=== PATIENT | male | born 1955 | race African-American/Black ===

== ENCOUNTER → 2019-01-31 | Outpatient (CLI) | payer OTHER ==
--- NOTE | 2019-01-31 19:01 | CONS ---
CONSULTATION DATE OF SERVICE: 01/31/2019 This patient is a 63-year-old gentleman who has been evaluated in the sleep center for possible obstructive sleep apnea-hypopnea syndrome. HISTORY OF PRESENT ILLNESS/SLEEP-WAKE EVALUATION: Patient's usual sleep schedule is from around 10 p.m. until 6 or 7 a.m. Usually no problems with falling asleep, although patient has TV set in bedroom. He wakes up from sleep up to 4 times, with up to 3 episodes of nocturia. He has loud snoring, kicks at night, wakes up with grinding teeth, heartburn, restless legs and sweating. In the morning the patient wakes up tired, falling asleep during the day. He worries about his sleep, has problems with memory, concentration, irritability and sexual dysfunction. [place] Sleepiness Scale is increased at 22. No history of hypnagogic hallucinations, sleep paralysis or cataplexy. PAST MEDICAL HISTORY: 1. Hypertension. 2. Asthma. 3. Hyperlipidemia. 4. Hypothyroidism. PAST SURGICAL HISTORY: Right knee arthroscopic surgery. MEDICATIONS: 1. Thyroid supplement. 2. Atorvastatin. 3. Amlodipine. 4. Symbicort. 5. ProAir. SOCIAL HISTORY: Negative for smoking. Alcohol consumption occasional. FAMILY HISTORY: Hypertension, arthritis, snoring, cancer. REVIEW OF SYSTEMS: Multiple awakenings from sleep, significant excessive daytime sleepiness and tiredness. PHYSICAL EXAMINATION: GENERAL: A pleasant -English gentleman without distress. VITAL SIGNS: BP 161/73, HR 92, RR 16, height 5 feet 11-1/2 inches, weight 279 pounds, body mass index 38.3, temperature 98.1, oxygen saturation at room air 98%. HEENT: PERRLA, EOMI. Evaluation of oropharynx showed tongue protrudes midline. Extremely low position of soft palate. Mallampati IV. Restriction of nasal breathing bilaterally. NECK: Supple. No JVD. Thyroid is not palpable. Wide neck: 17-1/2 inches in circumference. LUNGS: Clear to percussion and to auscultation. Good air exchange. No wheezing or rhonchi. HEART: S1, S2 regular. No murmurs, gallops or rubs. ABDOMEN: Obese. EXTREMITIES: No clubbing or cyanosis. [employer]: Awake, alert, and oriented X3. Cranial nerves 2 to 7 intact. There is no fasciculation or atrophy. noted. No focal deficits observed. IMPRESSION: 1. Snoring, multiple awakenings from sleep, extremely low position of soft palate, wide neck, sleepiness; obstructive sleep apnea-hypopnea syndrome. 2. Significant excessive daytime sleepiness with very high level of [place] Sleepiness Scale at 22, indicating necessity to include hypersomnia and narcolepsy in the differential diagnosis. 3. Kicking at night, periodic limb movements. 4. Hypertension. 5. Asthma. 6. Hyperlipidemia. 7. Hypothyroidism. 8. Status post right knee arthroscopic surgery. PLAN: 1. Polysomnography for evaluation of patient's breathing during sleep. 2. CPAP/BiPAP titration if sleep study confirms obstructive sleep apnea-hypopnea syndrome. 3. Preferable position during sleep on the side. 4. No driving if patient feels any sleepiness. 5. I will see patient for follow up visit to explain results of testing and following plan. After sleep apnea is treated, if necessary periodic limb movements will be treated. We will do a clinical assessment for symptoms of excessive daytime sleepiness. If patient continues to have any sleepiness, we may consider multiple sleep latency test. Thank you very much for referring this patient for consultation. Sincerely, Senthil Kapoor MD, PhD, FAASM Diplomat of [employer] [facility] Aldie MMODL / ROXANNN: [phone] /
== END | disposition home or self-care (01) ==
LOC: SLEEP 14:15
PROVIDERS: ATTEND Internal Medicine
DX: G47.33 Obstructive sleep apnea (adult) (pediatric) (principal); G47.61 Periodic limb movement disorder; I10 Essential (primary) hypertension; J45.909 Unspecified asthma, uncomplicated; E78.5 Hyperlipidemia, unspecified; E03.9 Hypothyroidism, unspecified; Z98.890 Other specified postprocedural states; Z79.51 Long term (current) use of inhaled steroids; Z79.899 Other long term (current) drug therapy
CPT/HCPCS: 99211

== ENCOUNTER 2021-09-12 22:10 | Observation (INO) | payer MEDICARE, OTHER ==
[2021-09-12] MEDS ORDERED: DEXAMETHASONE SOD PHOSPHATE 10 MG/ML 1 ML VIAL IVP STA (22:19)
[2021-09-12] MEDS ORDERED: ACETAMINOPHEN TAB 500 MG TAB PO STA (22:19)
[2021-09-12] MEDS ORDERED: KETOROLAC 15 MG/ML 1 ML VIAL IVP STA (22:19)
[2021-09-12] MEDS ORDERED: SODIUM CHLORIDE 0.9% 1,000 ML IV STA ×2 (22:19)
[2021-09-12] MEDS ORDERED: ALBUTEROL HFA INHALER INHALATION STA (22:19)
--- NOTE | 2021-09-12 22:26 | ED ---
Recheck HPI - General Chief Complaint: Shortness of Breath Stated Complaint: SOB Time Seen by Provider: 09/12/21 22:19 Source: patient, RN notes reviewed, old records reviewed Mode of arrival: wheelchair Limitations: no limitations - History of Present Illness Initial Comments: This is a 66-year-old male DF for evaluation. Patient presents with a positive coronavirus patient known as far as 1210. Patient did receive antibody treatment and states his felt better today he did not and then began to have persistent feelings of weakness, shortness of breath. Patient has no significant complaints of chest pain. Patient states he will start coughing fits and then becomes very anxious regarding his symptoms which is why he presents to the ER tonight. Patient admits to pressure and shortness of breath as well. MD Complaint: abnormal lab (Known positive history of coronavirus) -: days(s) (10) Returns Today for: Called Because of Abnormal Lab/Test, persistent/worsening pain related to initial visit Symptoms Since Prior Visit: worsening pain Associated Symptoms: fever, chills, malaise, nausea Treatments Prior to Arrival: other medications (none) - Related Data Home Medications Medication Instructions Recorded Confirmed Albuterol Nebulized [Ventolin 2.5 mg INHALATION RT-QID PRN 01/12/16 09/12/21 Nebulized] Symbicort (Unknown Dose) 2 puff INHALATION RT-BID 01/12/16 09/12/21 Levothyroxine Sodium [Synthroid] 75 mcg PO DAILY 01/14/16 09/12/21 Albuterol Sulfate [Proair Hfa] 2 puff INHALATION RT-Q4H PRN 09/12/21 09/12/21 Ascorbic Acid [Vitamin C] 1,000 mg PO DAILY 09/12/21 09/12/21 Aspirin EC [Ecotrin Low Dose] 81 mg PO DAILY 09/12/21 09/12/21 Atorvastatin Calcium [Lipitor] 40 mg PO DAILY 09/12/21 09/12/21 Brinzolamide [Azopt 1% Ophth Susp] 1 drop BOTH EYES BID 09/12/21 09/12/21 Cyanocobalamin (Vitamin B-12) 1,000 mcg PO DAILY 09/12/21 09/12/21 [Vitamin B-12] Latanoprost/Pf [Latanoprost 0.005% 1 drop BOTH EYES HS 09/12/21 09/12/21 Eye Drop] amLODIPine [Norvasc] 10 mg PO DAILY 09/12/21 09/12/21 Allergies Allergy/AdvReac Type Severity Reaction Status Date / Time No Known Allergies Allergy Verified 09/12/21 23:20 Review of Systems ROS Statement: Those systems with pertinent positive or pertinent negative responses have been documented in the HPI. ROS Other: All systems not noted in ROS Statement are negative. Past Medical History Past Medical History: Asthma, Diabetes Mellitus, Hypertension History of Any Multi-Drug Resistant Organisms: None Reported Past Surgical History: Orthopedic Surgery Additional Past Surgical History / Comment(s): LOREN KNEE ARTHROSCOPY, COLONOSCOPY Past Anesthesia/Blood Transfusion Reactions: No Reported Reaction Past Psychological History: No Psychological Hx Reported Smoking Status: Never smoker Past Alcohol Use History: Rare Past Drug Use History: None Reported - Past Family History Father Family Medical History: Cancer Additional Family Medical History / Comment(s): BONE General Exam General appearance: alert, in no apparent distress, lethargic, obese Head exam: Present: atraumatic, normocephalic, normal inspection Eye exam: Present: normal appearance, PERRL, EOMI. Absent: scleral icterus, conjunctival injection, periorbital swelling ENT exam: Present: normal exam, mucous membranes moist Neck exam: Present: normal inspection. Absent: tenderness, meningismus, lymphadenopathy Respiratory exam: Present: respiratory distress, wheezes, decreased breath sounds, prolonged expiratory. Absent: rales, rhonchi, stridor Cardiovascular Exam: Present: regular rate, normal rhythm, normal heart sounds. Absent: systolic murmur, diastolic murmur, rubs, gallop, clicks GI/Abdominal exam: Present: soft, normal bowel sounds. Absent: distended, tenderness, guarding, rebound, rigid Extremities exam: Present: normal inspection, full ROM, normal capillary refill. Absent: tenderness, pedal edema, joint swelling, calf tenderness Back exam: Present: normal inspection Neurological exam: Present: alert, oriented X3, CN II-XII intact Psychiatric exam: Present: normal affect, normal mood Skin exam: Present: warm, dry, intact, normal color. Absent: rash Course Vital Signs 09/12/21 22:12 Temperature 98.0 F Pulse Rate 99 Respiratory 18 Rate Blood Pressure 151/86 O2 Sat by Pulse 97 Oximetry - Reevaluation(s) Reevaluation #1: 12/19/21 00:52 Medical record is reviewed Reevaluation #2: 09/13/21 00:52 Patient having persistent and significant shortness of breath weakness and not feeling well Reevaluation #3: 09/13/21 00:52 Patient states that 90 is very short of breath can catch his breath and has coughing fits Reevaluation #4: 09/13/21 00:52 Patient informed results and questions answered Does not fill comfortable with discharge - Consultations Consultation #1: Spoke with Dr. Prince who will admit this patient Medical Decision Making - Medical Decision Making 56 male presented today for evaluation of shortness of breath persistent coronavirus weakness with asthma exacerbation. Patient will be admitted for breathing treatments as needed steroids and monitoring. - Lab Data Result diagrams: 09/12/21 23:05 09/12/21 23:05 Lab Results 09/12/21 09/12/21 09/12/21 Range/Units 23:05 23:05 23:05 WBC 6.0 (3.8-10.6) k/uL RBC 5.07 (4.30-5.90) m/uL Hgb 14.0 (13.0-17.5) gm/dL Hct 43.7 (39.0-53.0) % MCV 86.1 (80.0-100.0) fL MCH 27.7 (25.0-35.0) pg MCHC 32.1 (31.0-37.0) g/dL RDW 14.0 (11.5-15.5) % Plt Count 272 (150-450) k/uL MPV 8.2 Neutrophils % 71 % Lymphocytes % 21 % Monocytes % 6 % Eosinophils % 1 % Basophils % 1 % Neutrophils # 4.2 (1.3-7.7) k/uL Lymphocytes # 1.3 (1.0-4.8) k/uL Monocytes # 0.4 (0-1.0) k/uL Eosinophils # 0.0 (0-0.7) k/uL Basophils # 0.0 (0-0.2) k/uL PT 9.6 (9.0-12.0) sec INR 0.9 (<1.2) APTT 23.8 (22.0-30.0) sec Sodium 137 (137-145) mmol/L Potassium 4.0 (3.5-5.1) mmol/L Chloride 99 (98-107) mmol/L Carbon Dioxide 25 (22-30) mmol/L Anion Gap 13 mmol/L BUN 11 (9-20) mg/dL Creatinine 1.06 (0.66-1.25) mg/dL Est GFR (CKD-EPI)AfAm 85 (>60 ml/min/1.73 sqM) Est GFR (CKD-EPI)NonAf 74 (>60 ml/min/1.73 sqM) Glucose 126 H (74-99) mg/dL Plasma Lactic Acid Kevin (0.7-2.0) mmol/L Calcium 8.8 (8.4-10.2) mg/dL Magnesium 2.1 (1.6-2.3) mg/dL Total Bilirubin 0.5 (0.2-1.3) mg/dL AST 33 (17-59) U/L ALT 25 (4-49) U/L Alkaline Phosphatase 78 (38-126) U/L Lactate Dehydrogenase 662 H (313-618) U/L C-Reactive Protein 3.8 H (<1.0) mg/dL Total Protein 6.9 (6.3-8.2) g/dL Albumin 4.1 (3.5-5.0) g/dL 09/12/21 Range/Units 23:05 WBC (3.8-10.6) k/uL RBC (4.30-5.90) m/uL Hgb (13.0-17.5) gm/dL Hct (39.0-53.0) % MCV (80.0-100.0) fL MCH (25.0-35.0) pg MCHC (31.0-37.0) g/dL RDW (11.5-15.5) % Plt Count (150-450) k/uL MPV Neutrophils % % Lymphocytes % % Monocytes % % Eosinophils % % Basophils % % Neutrophils # (1.3-7.7) k/uL Lymphocytes # (1.0-4.8) k/uL Monocytes # (0-1.0) k/uL Eosinophils # (0-0.7) k/uL Basophils # (0-0.2) k/uL PT (9.0-12.0) sec INR (<1.2) APTT (22.0-30.0) sec Sodium (137-145) mmol/L Potassium (3.5-5.1) mmol/L Chloride (98-107) mmol/L Carbon Dioxide (22-30) mmol/L Anion Gap mmol/L BUN (9-20) mg/dL Creatinine (0.66-1.25) mg/dL Est GFR (CKD-EPI)AfAm (>60 ml/min/1.73 sqM) Est GFR (CKD-EPI)NonAf (>60 ml/min/1.73 sqM) Glucose (74-99) mg/dL Plasma Lactic Acid Kevin 1.4 (0.7-2.0) mmol/L Calcium (8.4-10.2) mg/dL Magnesium (1.6-2.3) mg/dL Total Bilirubin (0.2-1.3) mg/dL AST (17-59) U/L ALT (4-49) U/L Alkaline Phosphatase (38-126) U/L Lactate Dehydrogenase (313-618) U/L C-Reactive Protein (<1.0) mg/dL Total Protein (6.3-8.2) g/dL Albumin (3.5-5.0) g/dL - EKG Data -: EKG Interpreted by Me (EKG shows normal sinus a 93 SD 130 QRS 74 QTc 455) - Radiology Data Radiology results: report reviewed (Chest x-rays positive for coronavirus pneumonia), image reviewed Disposition Clinical Impression: Acute exacerbation of chronic obstructive pulmonary disease, Coronavirus infection, Pneumonia due to 2019 novel coronavirus Disposition: ADMITTED IP TO THIS HOSP Condition: Good Is patient prescribed a controlled substance at d/c from ED?: No Referrals: [facility],Clinic [REFERRING] - 1-2 days
--- NOTE | 2021-09-12 23:11 | XR ---
EXAMINATION TYPE: XR chest 1V portable DATE OF EXAM: 09/12/2021 COMPARISON: NONE HISTORY: Short of breath. Cough TECHNIQUE: Single view FINDINGS: There is some coarse peripheral interstitial infiltrates in the lungs. There is some degene rative spurring in the thoracic spine. There is no gross heart failure. Costophrenic angles are fairl y clear. IMPRESSION: There is some mild peripheral pulmonary interstitial infiltrates. No suspicious pulmonary mass. No heart failure.
[2021-09-13 00:10] LABS: Basophils % (A) 1 %; Eosinophils % (A) 1 %; HCT 43.7 % (39.0-53.0); Lymphocytes # (A) 1.3 k/uL (1.0-4.8); Lymphocytes % (A) 21 %; MCH 27.7 pg (25.0-35.0); MCHC 32.1 g/dL (31.0-37.0); MCV 86.1 fL (80.0-100.0); Mean Platelet Volume 8.2; Monocytes # (A) 0.4 k/uL (0-1.0); Monocytes % (A) 6 %; Neutrophils # (A) 4.2 k/uL (1.3-7.7); Neutrophils % (A) 71 %; Platelet Count 272 k/uL (150-450); RBC 5.07 m/uL (4.30-5.90)
[2021-09-13 00:19] LABS: INR 0.9 (<1.2); Partial Thromboplastin Time 23.8 sec (22.0-30.0); Prothrombin Time 9.6 sec (9.0-12.0)
[2021-09-13 00:24] LABS: Albumin 4.1 g/dL (3.5-5.0); C Reactive Protein 3.8 mg/dL (<1.0); Calcium 8.8 mg/dL (8.4-10.2); Magnesium 2.1 mg/dL (1.6-2.3); Total Bilirubin 0.5 mg/dL (0.2-1.3); Total Protein 6.9 g/dL (6.3-8.2)
[2021-09-13] MEDS ORDERED: MORPHINE SULFATE 4 MG/ML SYRINGE IV PRN (00:45)
[2021-09-13] MEDS ORDERED: ACETAMINOPHEN TAB 325 MG TAB PO PRN (00:45)
[2021-09-13] MEDS ORDERED: ONDANSETRON 4 MG/2 ML VIAL IVP PRN (00:45)
[2021-09-13] MEDS ORDERED: NALOXONE 0.4 MG/ML 1 ML VIAL IV PRN (00:45)
[2021-09-13] MEDS ORDERED: LORazepam 2 MG/ML INJ IV PRN (00:45)
[2021-09-13] MEDS ORDERED: IBUPROFEN 400 MG TAB PO PRN (00:45)
[2021-09-13] MEDS: SODIUM CHLORIDE 0.9% 1,000 ML IV SCH ×3 (06:54→13:02)
[2021-09-13] MEDS: DEXAMETHASONE SOD PHOSPHATE 4 MG/ML 1 ML VIAL IVP SCH ×2 (06:55→13:02)
[2021-09-13] MEDS: ENOXAPARIN 40 MG/0.4 ML SYRINGE SQ SCH (07:53)
[2021-09-13] MEDS ORDERED: ALBUTEROL HFA INHALER INHALATION PRN (12:20)
[2021-09-13] MEDS: DORZOLAMIDE HCL 2% DROPS 10 ML BTL BOTH EYES SCH ×2 (13:01→20:57)
[2021-09-13] MEDS: amLODIPine 10 MG TAB PO SCH (13:02)
[2021-09-13] MEDS: CYANOCOBALAMIN 500 MCG TAB PO SCH (13:02)
[2021-09-13] MEDS: ASCORBIC ACID 500 MG TAB PO SCH (13:02)
[2021-09-13] MEDS: ATORVASTATIN 40 MG TAB PO SCH (13:02)
[2021-09-13] MEDS: LEVOTHYROXINE 75 MCG TAB PO SCH (13:02)
[2021-09-13] MEDS: ASPIRIN 81 MG PO SCH (13:02)
--- NOTE | 2021-09-13 16:46 | P.CNPUL ---
History of Present Illness Consult date: 09/13/21 Requesting physician: Peyton Stafford Reason for consult: dyspnea, cough, asthma, pneumonia, abnormal CXR/CT Chief complaint: Shortness of breath and cough. History of present illness: Pulmonary consult dated 09/13/2021. 66-year-old male, who was seen in the emergency department, on September 12, for shortness of breath. The patient tested positive for coronavirus on September 04. At that time, the patient received monoclonal antibody infusion. He comes into the emergency room complaining of weakness, shortness of breath, cough, and just generally not feeling well. The patient is evaluated in the emergency room, and admitted to the hospital. Currently, the patient's on room air with saturations are 95%. Blood pressure 147/81, respiratory rate 18, heart rate 84, and a normal temperature. Chest x-ray show some minimal bilateral infiltrates. White count 6, hemoglobin 14, hematocrit 43.7, and platelet count 272,000. Sodium potassium chloride CO2 all normal. Anion gap normal. BUN and creatinine were 11 1.06. Ferritin was 733. LDH 662. C-reactive protein was 3.8. The patient is currently on vitamin C, Symbicort, Decadron, and Lovenox. Review of Systems REVIEW OF SYSTEMS: CONSTITUTIONAL: Weakness and fatigue. NEUROLOGIC: [ Negative.] HEENT: [ Negative.] CARDIAC: [Negative.] PULMONARY: Shortness of breath, chest congestion, cough. GI: [Negative.] : [Negative.] RHEUMATOLOGIC: [ Negative.] IMMUNOLOGIC: [ Negative.] ENDOCRINE: [Negative. ] DERMATOLOGIC: [Negative.] Past Medical History Past Medical History: Asthma, Diabetes Mellitus, Hypertension History of Any Multi-Drug Resistant Organisms: None Reported Past Surgical History: Orthopedic Surgery Additional Past Surgical History / Comment(s): LOREN KNEE ARTHROSCOPY, COLONOSCOPY Past Anesthesia/Blood Transfusion Reactions: No Reported Reaction Past Psychological History: No Psychological Hx Reported Smoking Status: Never smoker Past Alcohol Use History: Rare Past Drug Use History: None Reported - Past Family History Father Family Medical History: Cancer Additional Family Medical History / Comment(s): BONE Medications and Allergies Home Medications Medication Instructions Recorded Confirmed Type Albuterol Nebulized [Ventolin 2.5 mg INHALATION RT-QID PRN 01/12/16 09/12/21 History Nebulized] Symbicort (Unknown Dose) 2 puff INHALATION RT-BID 01/12/16 09/12/21 History Levothyroxine Sodium [Synthroid] 75 mcg PO DAILY 01/14/16 09/12/21 History Albuterol Sulfate [Proair Hfa] 2 puff INHALATION RT-Q4H PRN 09/12/21 09/12/21 History Ascorbic Acid [Vitamin C] 1,000 mg PO DAILY 09/12/21 09/12/21 History Aspirin EC [Ecotrin Low Dose] 81 mg PO DAILY 09/12/21 09/12/21 History Atorvastatin Calcium [Lipitor] 40 mg PO DAILY 09/12/21 09/12/21 History Brinzolamide [Azopt 1% Ophth Susp] 1 drop BOTH EYES BID 09/12/21 09/12/21 History Cyanocobalamin (Vitamin B-12) 1,000 mcg PO DAILY 09/12/21 09/12/21 History [Vitamin B-12] Latanoprost/Pf [Latanoprost 0.005% 1 drop BOTH EYES HS 09/12/21 09/12/21 History Eye Drop] amLODIPine [Norvasc] 10 mg PO DAILY 09/12/21 09/12/21 History Allergies Allergy/AdvReac Type Severity Reaction Status Date / Time No Known Allergies Allergy Verified 09/12/21 23:20 Physical Exam Osteopathic Statement: *. No significant issues noted on an osteopathic structural exam other than those noted in the History and Physical/Consult. Vitals: Vital Signs Temp Pulse Pulse Resp BP BP Pulse Ox 09/13/21 14:46 97.9 F 84 18 147/81 95 09/13/21 07:00 97.4 F L 85 18 132/80 95 09/13/21 06:19 98.1 F 84 18 134/72 99 09/13/21 02:00 85 18 135/78 99 09/12/21 22:12 98.0 F 99 18 151/86 97 Intake and Output 09/13/21 09/13/21 09/13/21 06:59 14:59 22:59 Intake Total 118 Balance 118 Intake: Oral 118 Other: # Voids 2 # Bowel Movements 1 Weight 128.82 kg No acute distress, oriented 3. No respiratory distress. The patient's on room air, with excellent saturations. HEENT examination is grossly unremarkable. Neck supple. Full range of motion. No adenopathy thyromegaly or neck vein distention. Cardiovascular examination reveals regular rhythm rate. S1-S2 normal. No S3 or S4. No discernible murmur noted. Heart rate 84 bpm. Lungs reveal mild scattered rhonchi. No wheezes. A few scattered crackles. Breath sounds equal. Room air saturation 95%. Abdomen soft bowel sounds are heard. No masses or tenderness. Extremities are intact. No cyanosis clubbing or edema. Skin is without rash or lesion. Neurologic examination is brief but nonfocal. Results - Laboratory Findings CBC and BMP: 09/12/21 23:05 09/12/21 23:05 PT/INR, D-dimer PT 9.6 sec (9.0-12.0) 09/12/21 23:05 INR 0.9 (<1.2) 09/12/21 23:05 Abnormal lab findings: Abnormal Labs 09/12/21 09/13/21 23:05 06:59 Glucose 126 H Ferritin 733.0 H Lactate Dehydrogenase 662 H C-Reactive Protein 3.8 H Coronavirus (PCR) Detected A - Diagnostic Findings Chest x-ray: image reviewed Assessment and Plan Assessment: Acute coronavirus infection, with minimal pulmonary complaints. History of chronic bronchial asthma. History of diabetes mellitus. History of hypertension. History of hypothyroidism. History of hyperlipidemia. Plan: Plan dated 09/13/2021. The patient appears to be relatively stable. His asthma appears not to be particularly active. His chest x-ray shows minimal bilateral infiltrates. The patient did receive a monoclonal antibody infusion. Medications are reviewed. Labs reviewed. Medications will be adjusted accordingly. We will continue to follow make recommendations where appropriate. Time with Patient: Greater than 30
--- NOTE | 2021-09-13 18:21 | HP ---
HISTORY AND PHYSICAL DATE OF SERVICE: 09/13/2021. CHIEF COMPLAINTS: Shortness of breath and weakness. HISTORY OF PRESENT ILLNESS: This 66-year-old gentleman with a past medical history of multiple medical problems, including history of asthma, diabetes mellitus, hypertension, being followed by Dr. Marybel Callaway in the outpatient setting, was recently diagnosed with COVID-19 on September 04. The patient subsequently monoclonal antibodies. For a period, the patient felt better. Now the patient is complaining of increasing shortness of breath and weakness. Patient was taken to [facility] and admitted for further evaluation and treatment. The pulse ox is normal. Chest x-ray showed some minimal pneumonia, and inflammatory markers are also elevated. COVID-19 is negative. D- dimer is not available. There is no history of any fever, rigor or chills at this time. No headache, loss of consciousness , seizures. PAST MEDICAL HISTORY: Asthma, diabetes mellitus, hypertension. HOME MEDICATIONS: Reviewed. They include vitamin B12, vitamin C, latanoprost, Ecotrin, Norvasc, Lipitor, ProAir. Doses are reviewed. ALLERGIES: NONE. FAMILY HISTORY: No history of heart disease or strokes in the family. SOCIAL HISTORY: No history of smoking. No history of alcohol intake. REVIEW OF SYSTEMS: ENT: No diminished hearing. No diminished vision. CARDIOVASCULAR SYSTEM: As mentioned earlier. RESPIRATORY SYSTEM: As mentioned earlier. GI: No nausea, vomiting, diarrhea. : No dysuria. NERVOUS SYSTEM: No numbness, weakness. ALLERGY/IMMUNOLOGY: As mentioned earlier. HEMATOLOGY/ONCOLOGY: No history of anemia. ENDOCRINE: As mentioned earlier. CONSTITUTIONAL: As mentioned earlier. DERMATOLOGY: Negative. RHEUMATOLOGY: Negative. PSYCHIATRY: As mentioned earlier. PHYSICAL EXAMINATION: Patient is alert, oriented x3. Pulse is 85, blood pressure 132/80, respiration 18, temperature 97.4, pulse ox 94% on room air. HEENT: Conjunctivae normal. NECK: No jugular venous distention. CARDIOVASCULAR: S1, S2 muffled. RESPIRATION: Breath sounds diminished at the bases. A few scattered rhonchi and crackles. ABDOMEN: Soft, nontender. LEGS: No edema. No swelling. NERVOUS SYSTEM: Higher functions as mentioned earlier. Moves all 4 limbs. No focal motor or sensory deficit. LYMPHATICS: No lymph node palpable in neck, axillae or groin. SKIN: No ulcer, rash, bleeding. JOINTS: No active deforming arthropathy. LABS: CBC within normal limits. Glucose 126. Ferritin 730. Other labs noted. ASSESSMENT: 1. Acute COVID-19 infection with acute COVID-19 bilateral early interstitial pneumonia with no hypoxia. 2. Elevated inflammatory markers of COVID-19. 3. Chronic intermittent bronchial asthma. 4. Diabetes mellitus, type 2. 5. Hypertension. 6. Degenerative joint disease. 7. FULL CODE. 8. Obesity with body mass index of 37.4. RECOMMENDATIONS AND DISCUSSION: In this 66-year-old gentleman who presented with multiple complex medical issues, we will monitor the patient closely, continue the current medications, continue with symptomatic treatment. The patient was started on dexamethasone. Monitor blood sugars closely. Repeat labs. Cautious IV fluids. I would also recommend a D-dimer; if it is elevated, CT angio of the chest. Prognosis is guarded because of multiple complex medical issues. Further recommendations to follow. A copy of this dictation is being forwarded to Dr. Marybel Callaway, who is the primary physician. RENEE / ROXANNN: [phone] / LEOBARDO
[2021-09-13] MEDS: SYMBICORT 160-4.5 MCG INHALER INHALATION SCH (19:58)
[2021-09-13] MEDS ORDERED: SYMBICORT 80-4.5 MCG INHALER INHALATION SCH (20:00)
[2021-09-13] MEDS ORDERED: LATANOPROST 0.005% OPHTH DROPS 2.5 ML BTL BOTH EYES SCH (21:00)
[2021-09-14] MEDS ORDERED: guaiFENesin SYRUP 100MG/5ML 200 MG/10 ML CUP PO PRN (02:37)
[2021-09-14] MEDS: SODIUM CHLORIDE 0.9% 1,000 ML IV SCH ×2 (02:42→16:17)
[2021-09-14] MEDS: LEVOTHYROXINE 75 MCG TAB PO SCH (05:40)
[2021-09-14 07:48] VITALS: RESP 18; TEMP 97.7
[2021-09-14] MEDS: ENOXAPARIN 40 MG/0.4 ML SYRINGE SQ SCH (07:59)
[2021-09-14] MEDS: amLODIPine 10 MG TAB PO SCH (08:00)
[2021-09-14] MEDS: ASCORBIC ACID 500 MG TAB PO SCH (08:00)
[2021-09-14] MEDS: ASPIRIN 81 MG PO SCH (08:00)
[2021-09-14] MEDS: ATORVASTATIN 40 MG TAB PO SCH (08:00)
[2021-09-14] MEDS: DORZOLAMIDE HCL 2% DROPS 10 ML BTL BOTH EYES SCH (08:00)
[2021-09-14] MEDS: CYANOCOBALAMIN 500 MCG TAB PO SCH (08:00)
[2021-09-14] MEDS: SYMBICORT 160-4.5 MCG INHALER INHALATION SCH (08:42)
--- NOTE | 2021-09-14 08:48 | P.CONS ---
History of Present Illness - Reason for Consult Consult date: 09/13/21 covid 19 Requesting physician: Peyton Stafford - Chief Complaint weakness and shortness of breath x few days - History of Present Illness History of present illness : Patient is 66-year-old -[place] male with a past medical history significant for asthma in this patient presented to the hospital with increasing shortness of breath apparently the patient tested positive for COVID-19 on September 04 and the patient has received a monoclonal antibody infusion however the patient mention he started having problem of increasing weakness shortness of breath and cough and generalized not feeling well patient did have a cough which is mild to moderate intensity no purulent sputum patient denies having any chest pain no nausea no vomiting no abdominal pain or any diarrhea patient on presentation to the hospital was afebrile and no fever has been recorded subsequently patient is currently satting 97 to 96% on room air patient did have a normal white count with no lymphopenia creatinine is normal liver enzymes are normal CRP was mildly elevated packer PCR was positive chest x-ray peripheral pulmonary interstitial infiltrate patient was admitted to hospital infectious disease was consulted for further management Review of system: CONSTITUTIONAL: Positive for weakness denies fever. EYES: No complaint. ENT: No complaint. RESPIRATORY: As per history of present illness. CARDIOVASCULAR: No complaint. GENITOURINARY: No complaint. GASTROINTESTINAL: No complaint. MUSCULOSKELETAL: No complaint. INTEGUMENTARY: No complaint. PSYCHOLOGIC: No complaint. ENDOCRINE: No complaint. NEUROLOGIC: No complaint. Past medical history : Reviewed, documented below Past surgical history : Reviewed, documented below Social history: Reviewed, documented below Medications: Reviewed, as documented below EXAMINATION: Vital sigans= Reviewed and documented below GENERAL DESCRIPTION: Elderly male lying in bed, no distress. No tachypnea or accessory muscle of respiration use. HEENT: Shows Pallor , no scleral icterus. Oral mucous membrane is dry. NECK: Trachea central, no thyromegaly. LUNGS: Unlabored breathing. Decrease intensity of breath sounds. No wheeze or crackle. HEART: S1, S2, regular rate and rhythm. ABDOMEN: Soft, no tenderness , guarding or rigidity EXTREMITIES: No edema of feet. SKIN: No rash, no masses palpable. NEUROLOGICAL: The patient is awake, alert, oriented x3, mood and affect normal. LABS AND RADIOLOGY: Reviewed results see below Assessment : Patient presented to hospital with weakness increasing shortness of breath and this patient symptom has been going on for more than a week and he tested positive for COVID-19 on September 04 has received a monoclonal antibodies infusion patient currently with no fever no hypoxemia no lymphopenia chest x-ray with minimal infiltrate symptoms could be related to underlying asthma rather than to the COVID-19 infection, with no hypoxemia and length of his symptoms patient did not qualify for remdesivir per [facility] policy Plan: 1-patient to continue with the dexamethasone Lovenox zinc and ascorbic acid 2-no need for systemic antibiotic therapy 3-droplet isolation We will follow on clinical condition and cultures to further adjust medication if needed Thank you for this consultation we will follow the patient along with you Past Medical History Past Medical History: Asthma, Diabetes Mellitus, Hypertension History of Any Multi-Drug Resistant Organisms: None Reported Past Surgical History: Orthopedic Surgery Additional Past Surgical History / Comment(s): LOREN KNEE ARTHROSCOPY, COLONOSCOPY Past Anesthesia/Blood Transfusion Reactions: No Reported Reaction Past Psychological History: No Psychological Hx Reported Smoking Status: Never smoker Past Alcohol Use History: Rare Past Drug Use History: None Reported - Past Family History Father Family Medical History: Cancer Additional Family Medical History / Comment(s): BONE Medications and Allergies Home Medications Medication Instructions Recorded Confirmed Type Albuterol Nebulized [Ventolin 2.5 mg INHALATION RT-QID PRN 01/12/16 09/12/21 History Nebulized] Symbicort (Unknown Dose) 2 puff INHALATION RT-BID 01/12/16 09/12/21 History Levothyroxine Sodium [Synthroid] 75 mcg PO DAILY 01/14/16 09/12/21 History Albuterol Sulfate [Proair Hfa] 2 puff INHALATION RT-Q4H PRN 09/12/21 09/12/21 History Ascorbic Acid [Vitamin C] 1,000 mg PO DAILY 09/12/21 09/12/21 History Aspirin EC [Ecotrin Low Dose] 81 mg PO DAILY 09/12/21 09/12/21 History Atorvastatin Calcium [Lipitor] 40 mg PO DAILY 09/12/21 09/12/21 History Brinzolamide [Azopt 1% Ophth Susp] 1 drop BOTH EYES BID 09/12/21 09/12/21 History Cyanocobalamin (Vitamin B-12) 1,000 mcg PO DAILY 09/12/21 09/12/21 History [Vitamin B-12] Latanoprost/Pf [Latanoprost 0.005% 1 drop BOTH EYES HS 09/12/21 09/12/21 History Eye Drop] amLODIPine [Norvasc] 10 mg PO DAILY 09/12/21 09/12/21 History Allergies Allergy/AdvReac Type Severity Reaction Status Date / Time No Known Allergies Allergy Verified 09/12/21 23:20 Physical Exam Vitals: Vital Signs Temp Pulse Pulse Resp BP BP Pulse Ox 09/13/21 14:46 97.9 F 84 18 147/81 95 09/13/21 07:00 97.4 F L 85 18 132/80 95 09/13/21 06:19 98.1 F 84 18 134/72 99 09/13/21 02:00 85 18 135/78 99 09/12/21 22:12 98.0 F 99 18 151/86 97 Intake and Output 09/13/21 09/13/21 09/13/21 06:59 14:59 22:59 Intake Total 118 Balance 118 Intake: Oral 118 Other: # Voids 2 # Bowel Movements 1 Weight 128.82 kg Results CBC & Chem 7: 09/12/21 23:05 09/12/21 23:05 Labs: Abnormal Lab Results - Last 24 Hours (Table) 09/12/21 09/13/21 Range/Units 23:05 06:59 Glucose 126 H (74-99) mg/dL Ferritin 733.0 H (22.0-322.0) ng/mL Lactate Dehydrogenase 662 H (313-618) U/L C-Reactive Protein 3.8 H (<1.0) mg/dL Coronavirus (PCR) Detected A (Not Detectd)
[2021-09-14] MEDS ORDERED: CHOLECALCIFEROL 25 MCG (1000 IU) TABLET PO SCH (09:00)
[2021-09-14] MEDS ORDERED: dexAMETHasone 2 MG TAB PO SCH (09:00)
[2021-09-14] MEDS ORDERED: ZINC SULFATE 220 MG CAP PO SCH (09:00)
--- NOTE | 2021-09-14 12:44 | P.DS ---
Providers Date of admission: 09/13/21 00:45 Expected date of discharge: 09/14/21 Attending physician: David Easley MD Consults: 09/13/21 00:47 Consult Physician Routine Consulting Provider: Stuart Vail Consult Reason/Comments: covid Do you want consulting provider notified?: Yes 09/13/21 12:19 Consult Physician Urgent Consulting Provider: Qi Spicer Consult Reason/Comments: covid, received antibodies Do you want consulting provider notified?: Yes Primary care physician: Marybel Callaway Hospital Course: Final Diagnoses: Acute Covid infection, status post monoclonal antibodies without hypoxic respiratory failure. Chronic bronchial asthma, stable Denies mellitus Hypothyroidism Hypertension Hyperlipidemia Obesity, BMI 37.5 Hospital course: This a 66-year-old admitted with acute Covid infection status post monoclonal antibodies. VSS. Patient is afebrile, normal WBC and not requiring additional oxygen supplementation. Maintaining O2 sats of high 90s on room air. Chest x-ray reported no bilateral infiltrates. Maintained on Covid cocktail. Ambulating in room, tolerating exertion well. Evaluated by both infectious disease and pulmonary. Patient will be discharged home in stable condition with guarded prognosis, pending pulmonary, DC recommendations and clearance. The impression and plan of care has been dictated as directed. : I performed a history and examination of this patient, discussed the same with the dictator. I agree with the dictator's note ,documented as a scribe. Any additional findings or plans will be noted. Patient Condition at Discharge: Stable Plan - Discharge Summary Discharge Rx Participant: No New Discharge Prescriptions: New Zinc Sulfate [Orazinc] 220 mg PO DAILY #30 cap Cholecalciferol [Vitamin D3 (25 Mcg = 1000 Iu)] 100 mcg PO DAILY tablet dexAMETHasone ORAL [Hexadrol] See Taper PO DAILY #18 tab guaiFENesin SYRUP 100MG/5ML [Robitussin] 200 mg PO Q6HR PRN ml PRN Reason: Cough Azithromycin [Zithromax Z-pack (6 tabs)] 0 mg PO DIRECTED 5 Days #6 tab Continue Albuterol Nebulized [Ventolin Nebulized] 2.5 mg INHALATION RT-QID PRN PRN Reason: Shortness Of Breath Levothyroxine Sodium [Synthroid] 75 mcg PO DAILY Cyanocobalamin (Vitamin B-12) [Vitamin B-12] 1,000 mcg PO DAILY Aspirin EC [Ecotrin Low Dose] 81 mg PO DAILY amLODIPine [Norvasc] 10 mg PO DAILY Albuterol Sulfate [Proair Hfa] 2 puff INHALATION RT-Q4H PRN PRN Reason: Shortness Of Breath Latanoprost/Pf [Latanoprost 0.005% Eye Drop] 1 drop BOTH EYES HS Brinzolamide [Azopt 1% Ophth Susp] 1 drop BOTH EYES BID Atorvastatin Calcium [Lipitor] 40 mg PO DAILY Ascorbic Acid [Vitamin C] 1,000 mg PO DAILY No Action Budesonide-Formot 160-4.5 Mcg [Symbicort 160-4.5 Mcg Inhaler] 2 puff INHALATION RT-BID Discharge Medication List Albuterol Nebulized [Ventolin Nebulized] 2.5 mg INHALATION RT-QID PRN 01/12/16 [History] Levothyroxine Sodium [Synthroid] 75 mcg PO DAILY 01/14/16 [History] Albuterol Sulfate [Proair Hfa] 2 puff INHALATION RT-Q4H PRN 09/12/21 [History] Ascorbic Acid [Vitamin C] 1,000 mg PO DAILY 09/12/21 [History] Aspirin EC [Ecotrin Low Dose] 81 mg PO DAILY 09/12/21 [History] Atorvastatin Calcium [Lipitor] 40 mg PO DAILY 09/12/21 [History] Brinzolamide [Azopt 1% Ophth Susp] 1 drop BOTH EYES BID 09/12/21 [History] Cyanocobalamin (Vitamin B-12) [Vitamin B-12] 1,000 mcg PO DAILY 09/12/21 [History] Latanoprost/Pf [Latanoprost 0.005% Eye Drop] 1 drop BOTH EYES HS 09/12/21 [History] amLODIPine [Norvasc] 10 mg PO DAILY 09/12/21 [History] Azithromycin [Zithromax Z-pack (6 tabs)] 0 mg PO DIRECTED 5 Days #6 tab 09/14/21 [Rx] Budesonide-Formot 160-4.5 Mcg [Symbicort 160-4.5 Mcg Inhaler] 2 puff INHALATION RT-BID 09/14/21 [History] Cholecalciferol [Vitamin D3 (25 Mcg = 1000 Iu)] 100 mcg PO DAILY tablet 09/14/21 [Rx] Zinc Sulfate [Orazinc] 220 mg PO DAILY #30 cap 09/14/21 [Rx] dexAMETHasone ORAL [Hexadrol] See Taper PO DAILY #18 tab 09/14/21 [Rx] guaiFENesin SYRUP 100MG/5ML [Robitussin] 200 mg PO Q6HR PRN ml 09/14/21 [Rx] Follow up Appointment(s)/Referral(s): [facility],Clinic [REFERRING] - 1-2 days
[2021-09-14 16:25] VITALS: BP 154/78; PULSE 87
--- NOTE | 2021-09-20 10:31 | P.PN ---
Progress Note - Text Progress Note Date: 09/14/21
== END 2021-09-14 18:15 | disposition home or self-care (01) ==
LOC: EC 22:10 → 6NMEDSUR 09-13 00:45
PROVIDERS: ADMIT Family Medicine; ATTEND Family Medicine
DX: U07.1 COVID-19 (principal); J84.9 Interstitial pulmonary disease, unspecified; J45.20 Mild intermittent asthma, uncomplicated; J44.1 Chronic obstructive pulmonary disease with (acute) exacerbation; J44.0 Chronic obstructive pulmonary disease with (acute) lower respiratory infection; R11.0 Nausea; R53.81 Other malaise; E11.9 Type 2 diabetes mellitus without complications; I10 Essential (primary) hypertension; E03.9 Hypothyroidism, unspecified; E78.5 Hyperlipidemia, unspecified; M19.90 Unspecified osteoarthritis, unspecified site; E66.9 Obesity, unspecified; Z68.37 Body mass index [BMI] 37.0-37.9, adult; Z79.51 Long term (current) use of inhaled steroids; Z79.890 Hormone replacement therapy; Z79.82 Long term (current) use of aspirin; Z79.899 Other long term (current) drug therapy; Z80.8 Family history of malignant neoplasm of other organs or systems
CPT/HCPCS: 96376 ×2; 96361 ×2; 96372 ×2; 96374; 96375; 99285; 36415; 94640 ×2; 93005; 83880; 80053; 82728; 83605; 83615; 83735; 85025; 85610; 85730; 86140; 87635; 71045; G0378 ×2; J1100 ×2; J1650 ×2; J8540; J1885

== ENCOUNTER → 2024-06-26 | Outpatient (CLI) | payer MEDICARE | END | disposition home or self-care (01) | LOC: LABWHC1 11:16 | PROVIDERS: ATTEND Urology | DX: N52.9 Male erectile dysfunction, unspecified (principal) | CPT/HCPCS: 36415; 84402 ==